=== PATIENT | male | born 1995 | race African-American/Black ===

== ENCOUNTER 2023-11-06 15:09 | Emergency (ER) | payer OTHER ==
[~2023-11-06] VITALS: Ht 193 cm; Wt 137.9 kg
[2023-11-06 16:03] VITALS: BP 161/91; PULSE 77; RESP 18; TEMP 98.4; O2SAT 98
[2023-11-06] MEDS ORDERED: ETHYL CHLORIDE 105 ML SPR TP ONE (16:45)
[2023-11-06] MEDS ORDERED: SULF-59 PO (17:06)
== END 2023-11-06 18:02 | disposition home or self-care (01) ==
LOC: MED 15:09
DX: L03.012 Cellulitis of left finger (principal); Z79.2 Long term (current) use of antibiotics
CPT/HCPCS: 99284